=== PATIENT | female | born 1995 | race Caucasian/White ===

== ENCOUNTER 2020-04-06 05:52 | Inpatient (IN) ==
[2020-04-06] MEDS ORDERED: Naloxone 0.4 MG/ML INJ IVP PRN (06:02)
[2020-04-06] MEDS ORDERED: Famotidine 20 MG/2 ML VIAL IVP ONE (06:02)
[2020-04-06] MEDS ORDERED: Metoclopramide 10 MG/2 ML VIAL IVP ONE (06:02)
[2020-04-06] MEDS ORDERED: ceFAZolin 2,000 MG in 0.9 % Sodium Chloride 100 ML IVPB ONE (06:04)
[2020-04-06] MEDS ORDERED: Ringers Solution, Lactated 1,000 ML IVC SCH (06:15)
[2020-04-06 06:32] LABS: Basophils % 0.4 %; Eosinophils # 0.1 K/mcL (0.0-0.6); Eosinophils % 1.6 %; Hematocrit 36.2 % (35.3-44.9); Hemoglobin 11.3 g/dL (11.5-15.4); Immature Granulocytes % 0.7 % (0-4); Lymphocytes # 2.2 K/mcL (0.6-4.6); Lymphocytes % 26.2 %; Mean Corpuscular HGB Conc 31.2 g/dL (31.6-35.5); Mean Corpuscular Hemoglobin 27.2 pg (28.0-33.3); Mean Corpuscular Volume 87.2 fL (83.0-100.0); Mean Platelet Volume 9.4 fL (9.4-12.4); Monocytes # 0.5 K/mcL (0.0-1.3); Monocytes % 6.2 %; Neutrophils # 5.4 K/mcL (1.6-8.9); Platelet Count 210 K/mcL (140-400); Red Blood Count 4.15 M/mcL (3.82-4.97); Red Cell Distribution Width 15.5 % (11.5-14.5); Segmented Neutrophils % 64.9 %; White Blood Count 8.4 K/mcL (4.3-11.1)
[2020-04-06 06:34] LABS: Amphetamine Screen,Urine Negative ng/mL (Cutoff=1000); Barbiturate Screen,Urine Negative ng/mL (Cutoff=200)
[2020-04-06 06:35] LABS: Benzodiazepines Screen,Urine Negative ng/mL (Cutoff=300); Cannabinoid Screen,Urine Negative ng/mL (Cutoff = 50); Cocaine Screen,Urine Negative ng/mL (Cutoff= 300); Opiate Screen,Urine Negative ng/mL (Cutoff=300); Phencyclidine Screen,Urine Negative ng/mL (Cutoff=25)
[2020-04-06] MEDS ORDERED: *HR* Morphine Sulfate/PF 10 MG/10 ML AMPUL ONE (07:51)
[2020-04-06] MEDS ORDERED: *HR* Phenylephrine 10 MG/ML VIAL ONE (08:02)
[2020-04-06] MEDS ORDERED: Acetaminophen IV 1,000 MG/100 ML INFUS..BTL ONE (08:04)
[2020-04-06] MEDS ORDERED: Rho Immune Globulin 1,500 UNIT SYRINGE IM ONE (11:20)
[2020-04-06] MEDS ORDERED: Sennosides 8.6 MG TABLET PO PRN (11:20)
[2020-04-06] MEDS ORDERED: Simethicone 80 MG TAB.CHEW PO PRN (11:20)
[2020-04-06] MEDS ORDERED: Metoclopramide 10 MG/2 ML VIAL IVP PRN (11:20)
[2020-04-06] MEDS ORDERED: *HR* OxyCODONE/APAP 5/325 TABLET PO PRN (11:20)
[2020-04-06] MEDS ORDERED: Ondansetron 4 MG/2 ML VIAL IVP PRN (11:20)
[2020-04-06] MEDS: Ibuprofen 600 MG TABLET PO SCH ×2 (12:35→22:36)
[2020-04-06] MEDS: cephALEXin 500 MG CAPSULE PO SCH ×2 (15:40→19:42)
[2020-04-06] MEDS: metroNIDAZOLE 500 MG TABLET PO SCH ×2 (15:41→19:42)
[2020-04-06] MEDS: Acetaminophen 325 MG TABLET PO PRN (19:42)
[2020-04-06] MEDS: Oxytocin 20 units/ LR 1000 mL 20 UNIT/1,000 ML BAG IVC SCH (22:36)
[2020-04-07] MEDS: Acetaminophen 325 MG TABLET PO PRN ×3 (02:49→16:22)
[2020-04-07] MEDS: Oxytocin 20 units/ LR 1000 mL 20 UNIT/1,000 ML BAG IVC SCH (02:51)
[2020-04-07 05:52] LABS: Basophils % 0.3 %; Eosinophils # 0.1 K/mcL (0.0-0.6); Eosinophils % 1.2 %; Hematocrit 33.6 % (35.3-44.9); Hemoglobin 10.8 g/dL (11.5-15.4); Immature Granulocytes % 0.5 % (0-4); Mean Corpuscular HGB Conc 32.1 g/dL (31.6-35.5); Mean Corpuscular Hemoglobin 28.3 pg (28.0-33.3); Mean Corpuscular Volume 88.2 fL (83.0-100.0); Mean Platelet Volume 9.5 fL (9.4-12.4); Monocytes # 0.8 K/mcL (0.0-1.3); Monocytes % 8.6 %; Neutrophils # 6.5 K/mcL (1.6-8.9); Platelet Count 171 K/mcL (140-400); Red Blood Count 3.81 M/mcL (3.82-4.97); Red Cell Distribution Width 15.5 % (11.5-14.5); Segmented Neutrophils % 68.4 %; White Blood Count 9.5 K/mcL (4.3-11.1)
[2020-04-07 08:28] VITALS: BP 118/79
[2020-04-07] MEDS ORDERED: Prenatal Vit/FA 1 EACH TABLET PO SCH (09:00)
[2020-04-07] MEDS ORDERED: NON-FORMULARY MEDICATION 1 EACH EACH (Prenatal Vit/Fa 1 TAB) PO SCH (09:00)
[2020-04-07] MEDS: cephALEXin 500 MG CAPSULE PO SCH ×2 (10:03→15:02)
[2020-04-07] MEDS: metroNIDAZOLE 500 MG TABLET PO SCH ×2 (10:03→15:02)
[2020-04-07] MEDS: Ibuprofen 600 MG TABLET PO SCH (11:57)
== END 2020-04-07 20:00 | disposition home or self-care (01) | DRG 787 ==
LOC: 1NENULAB 05:52 → 1NENUOBS 10:59
PROVIDERS: ADMIT Obstetrics & Gynecology; ATTEND Obstetrics & Gynecology